=== PATIENT | female | born 1980 | race Caucasian/White ===

== ENCOUNTER 2018-08-21 10:29 | Observation (INO) | payer OTHER ==
[2018-08-21] MEDS ORDERED: ACETAMINOPHEN 325 MG TABLET PO STA (13:27)
--- NOTE | 2018-08-21 13:30 | ED Physician Documentation ---
History of Present Illness - Stated complaint Stated Complaint: CHEST PX/TREVIZO - Chief complaint Chief Complaint: Neuro - History obtained from History obtained from: Patient - History of Present Illness Timing: How many days ago (3) - Additonal information Additional information: The patient is a 38-year-old female who presents with headache and myalgias of 6 days duration. She has also had a cyst on her anterior chest for more than a year but it has increased in size over the past 2 days, and has become exceptionally painful to touch. She is not certain of fever, but felt warm last night. She denies cough, shortness of breath, abdominal pain, nausea or vomiting. She denies sore throat. Past medical history is significant for Ally-en-Y surgery. She reports long history of iron deficiency anemia, requiring blood transfusions in the past. She states her hgb usually runs between 7 and 10. Review of Systems Constitutional: reports: Fever, Myalgias Eyes: denies: Decreased vision, Irritation Ears: denies: Ear pain, Tinnitus/ringing Nose: denies: Congestion Throat: denies: Sore throat Cardiac: reports: Chest pain / pressure (anterior chest) Respiratory: denies: Dyspnea, Cough GI: denies: Abdominal Pain, Nausea, Vomiting : denies: Dysuria Skin: denies: Rash Musculoskeletal: reports: Neck pain. denies: Back pain Neurologic: reports: Headache. denies: Focal weakness, Numbness, Confused PD PAST MEDICAL HISTORY - Past Medical History Endocrine/Autoimmune: None Other Past Medical History: Chronic anemia - Past Surgical History General: Other (S/P Ruen-Y Surgery) - Present Medications Home Medications: Ambulatory Orders Medication Instructions Recorded Confirmed No Known Home Medications 08/21/18 08/21/18 - Allergies Allergies/Adverse Reactions: Allergies Allergy/AdvReac Type Severity Reaction Status Date / Time No Known Drug Allergies Allergy Verified 08/21/18 10:35 - Social History Does the pt smoke?: No PD ED PE NORMAL - Vitals Vital signs reviewed: Yes (normal) - General General: Alert and oriented X 3, Well developed/nourished - HEENT HEENT: Atraumatic, PERRL, EOMI, Ears normal, Pharynx benign, Other (Tenderness to palpation over the right temporal region.) - Neck Neck: Supple, no meningeal sign, No adenopathy, No JVD - Cardiac Cardiac: RRR, No murmur - Respiratory Respiratory: No respiratory distress, Clear bilaterally - Abdomen Abdomen: Soft, Non tender - Back Back: No spinal TTP - Derm Derm: No rash, Other (There is a sebaceous cyst noted on the anterior chest over the sternal bone. There is associated tenderness to palpation.) - Extremities Extremities: No edema, No calf tenderness / cord - Neuro Neuro: Alert and oriented X 3, No motor deficit, Normal speech Results - Vitals Vitals: Vital Signs - 24 hr 08/21/18 10:33 Temperature 36.9 C Heart Rate 92 Respiratory 18 Rate Blood Pressure 133/80 H O2 Saturation 99 Oxygen O2 Source Room air - Labs Labs: Laboratory Tests 08/21/18 08/21/18 08/21/18 10:37 14:08 14:08 WBC 3.5 L RBC 3.46 L Hgb 5.2 L* Hct 18.6 L* MCV 53.8 L MCH 15.1 L MCHC 28.0 L RDW 23.0 H Plt Count 501 H MPV 8.1 Neut # (Auto) 1.2 L Lymph # (Auto) 2.0 [place] # (Auto) 0.2 Eos # (Auto) 0.0 Baso # (Auto) 0.0 Absolute Nucleated RBC 0.01 Nucleated RBC % 0.3 Platelet Estimate INCREASED (>450,000) Platelet Morphology 1+ LARGE PLATELETS RBC Morph Micro Appear 1+ MICROCYTOSIS ESR Iron TIBC Transferrin Influenza A (Rapid) Negative Influenza B (Rapid) Negative Blood Type Blood Type Recheck O POSITIVE Antibody Screen Crossmatch IS Only 08/21/18 08/21/18 08/21/18 14:09 15:14 15:27 WBC RBC Hgb Hct MCV MCH MCHC RDW Plt Count MPV Neut # (Auto) Lymph # (Auto) [place] # (Auto) Eos # (Auto) Baso # (Auto) Absolute Nucleated RBC Nucleated RBC % Platelet Estimate Platelet Morphology RBC Morph Micro Appear ESR 17 Iron < 6 L TIBC 570 H Transferrin 407 H Influenza A (Rapid) Influenza B (Rapid) Blood Type O POSITIVE Blood Type Recheck Antibody Screen NEGATIVE Crossmatch IS Only See Detail 08/21/18 15:27 WBC RBC Hgb Hct MCV MCH MCHC RDW Plt Count MPV Neut # (Auto) Lymph # (Auto) [place] # (Auto) Eos # (Auto) Baso # (Auto) Absolute Nucleated RBC Nucleated RBC % Platelet Estimate Platelet Morphology RBC Morph Micro Appear ESR Iron TIBC Transferrin Influenza A (Rapid) Influenza B (Rapid) Blood Type Cancelled Blood Type Recheck Antibody Screen Cancelled Crossmatch IS Only See Detail PD MEDICAL DECISION MAKING - ED course Complexity details: reviewed results, re-evaluated patient, considered differential, d/w patient, d/w family, d/w technical services consultant ED course: The patient's presentation is significant for profound anemia with a hemoglobin of 5.2 and hematocrit 18.6. Her MCV is low at 53.8. There is no history of recent blood loss or change in her stool color. Her last menstrual period was manager council than usual. The underlying cause for her headache is uncertain. Temporal arteritis was considered, given tenderness to palpation over the right temporal region. However with a normal sedimentation rate temporal arteritis is unlikely. Her presentation does not suggest meningitis, intracranial hemorrhage, or pseudotumor cerebri. Treatment in the emergency department included administration of acetaminophen 650 mg orally and oxycodone 5 mg orally. Blood transfusion was ordered. I discussed her condition with Dr. Nugent who accepts her for further evaluation and treatment. Departure - Departure Disposition: ED Place in Observation Clinical Impression: Anemia Qualifiers: Anemia type: unspecified type Qualified Code(s): D64.9 - Anemia, unspecified Headache Qualifiers: Headache type: unspecified Headache chronicity pattern: episodic headache Intractability: not intractable Qualified Code(s): R51 - Headache Condition: Stable Discharge Date/Time: 08/21/18 16:38
[2018-08-21] MEDS ORDERED: oxyCODONE 5 MG TABLET PO STA (14:26)
[2018-08-21 14:40] LABS: EOSINOPHILS % (AUTO) 1.2 %; LYMPHOCYTES % (AUTO) 57.3 %; MEAN CORPUSCULAR HEMOGLOBIN 15.1 pg (27.0-31.0); MEAN CORPUSCULAR VOLUME 53.8 fL (81.0-99.0); MEAN PLATELET VOLUME 8.1 fL (7.9-10.8); MONOCYTES # (AUTO) 0.2 10^3/uL (0.0-1.0); MONOCYTES % (AUTO) 5.2 %; NEUTROPHILS # (AUTO) 1.2 10^3/uL (1.5-6.6); NEUTROPHILS % (AUTO) 35.3 %; PLT - PLATELET COUNT 501 10^3/uL (130-450); RED BLOOD COUNT 3.46 10^6/uL (4.20-5.40); WHITE BLOOD COUNT 3.5 x10^3/uL (4.8-10.8)
[2018-08-21 14:43] LABS: HGB - HEMOGLOBIN 5.2 g/dL (12.0-16.0)
[2018-08-21 15:28] LABS: PLATELET ESTIMATE, MANUAL INCREASED (>450,000) (NORMAL); PLATELET MORPHOLOGY 1+ LARGE PLATELETS (NORMAL)
[2018-08-21 15:50] LABS: IRON < 6 ug/dL (28-170); TOTAL IRON BINDING CAPACITY 570 ug/dL (250-450); TRANSFERRIN 407 mg/dL (192-382)
[2018-08-21] MEDS ORDERED: ONDANSETRON 4 MG/2 ML VIAL IVP PRN (15:51)
--- NOTE | 2018-08-21 16:55 | HISTORY & PHYSICAL EXAMINATION ---
Chief Complaint - Chief Complaint Chief Complaint: flu-like symptoms History of Present Illness - Admitted From Admitted From:: [facility] - History Obtained From Records Reviewed: Yes History obtained from: patient, , EMR - History of Present Illness HPI Comment/Other: Mrs. Bains is 38 year old female a PMH significant for hx iron deficiency anemia, chronic anemia (per patient), menometorrhagia, and gastric bypass in 2011. She presents to the [facility] today with complaints of flu-like symptoms and headache for the last several days. She has been experiencing exertional dyspnea, palpitations and dizziness. She denies cough, shortness of breath, abdominal pain, n/v or sore throat. Workup in the ER revealed a Hgb of 5.2. The patient states that she normally ranges in the 7-10 range. She denies hematochezia, melena, or BRBPR. She last received a blood transfusion after her last delivery in 2018. She reports being worked up in the past, but reports that nothing was found. Iron studies reveal an iron level of <6 and TIBC of 570. She denies NSAID use. She is being admitted to observation for blood transfusion and IV iron infusion. 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 - Substance History Use: Uses substance without health or social issues: NONE - POLST Patient has POLST: No Meds/Allgy - Home Medications Home Medications: Ambulatory Orders Medication Instructions Recorded Confirmed No Known Home Medications 08/21/18 08/21/18 - Allergies Allergies/Adverse Reactions: Allergies Allergy/AdvReac Type Severity Reaction Status Date / Time No Known Drug Allergies Allergy Verified 08/21/18 10:35 Review of Systems - Constitutional Constitutional: reports: Fatigue, Malaise. denies: Fever, Chills - Cardiovascular Cariovascular: reports: Palpitations, Exertional dyspnea. denies: Irregular heart rate, Chest pain, Lightheadedness, Syncope - Respiratory Respiratory: denies: Cough, Hemoptysis - Gastrointestinal Gastrointestinal: denies: Rectal bleeding, Black stools, Bloody stools, Ahmet blood emesis, Coffee grounds emesis - Genitourinary Genitourinary: reports: Other (heavy menstrual periods with clots) - Musculoskeletal Musculoskeletal: reports: Muscle aches - Neurological Neurological: reports: Headache, Dizziness. denies: Seizures - Hematologic/Lymphatic Hematologic/Lymphatic: reports: Anemia - All Other Systems All Other Systems: reports: Reviewed and negative Prior Level of Functionality: Patient is independent Exam - Vital Signs Reviewed Vital Signs: Yes Vital Signs: Vital Signs x48h Temp Pulse Pulse Resp BP BP Pulse Ox 08/21/18 16:41 36.8 C 67 18 105/67 100 08/21/18 16:23 37 C 73 16 111/69 100 08/21/18 10:33 36.9 C 92 18 133/80 H 99 - Physical Exam General Appearance: positive: No acute distress, Alert Eyes Bilateral: positive: Normal inspection, PERRL, Other (pale conjunctiva) ENT: positive: ENT inspection nml, No signs of dehydration Neck: positive: Nml inspection, Trachea midline Respiratory: positive: Chest non-tender, No respiratory distress, Breath sounds nml Cardiovascular: positive: Regular rate & rhythm, No murmur, No gallop. negative: Systolic murmur Peripheral Pulses: positive: 2+ Abdomen: positive: Non-tender, No organomegaly, Nml bowel sounds, No distention Back: positive: Nml inspection Skin: positive: Warm, Dry, Pallor Extremities: positive: Non-tender, Full ROM, Nml appearance Neurologic/Psychiatric: positive: Oriented x3, CN's nml (2-12), Motor nml, Sensation nml, Mood/affect nml Conclusion/Plan - Problem List (1) Acute anemia Conclusion/Plan: Patient presents with symptomatic anemia with Hgb of 5.8. Per report, patient's normal Hgb ranges from 7-10 g/dL. No previous records are available for review. She was T&C in the ER. She will be admitted for observation. Telemetry. She will receive 3 units of PRBC. Follow-up CBC in the morning. (2) Iron deficiency anemia Conclusion/Plan: Severe. MCV 54. Iron level <6 with TIBC 570. Will give her an IV infusion. She will need to discharge on oral iron supplementation. Recommend close outpatient monitoring, if further IV iron infusions need to be given. Qualifiers: Iron deficiency anemia type: unspecified iron deficiency Qualified Code(s): D50.9 - Iron deficiency anemia, unspecified (3) Headache Conclusion/Plan: Patient presented with headache. Received tylenol in the ER. Will continue tylenol as needed for headache. Qualifiers: Headache type: unspecified Headache chronicity pattern: episodic headache Intractability: not intractable Qualified Code(s): R51 - Headache - Lab Results Fish Bones: 08/21/18 14:08 Core Measures - Anticipated LOS I expect patient to be DC'd or transferred within 96 hours.: Yes - DVT/VTE - Prophylaxis VTE/DVT Device ordered at admit?: Yes
[2018-08-21] MEDS: ACETAMINOPHEN 325 MG TABLET PO PRN ×2 (17:54→23:57)
[2018-08-21] MEDS ORDERED: IRON SUCROSE 200 MG in SODIUM CHLORIDE 0.9% 100ML 100 ML IV ONE (18:00)
[2018-08-21] MEDS: SODIUM CHLORIDE FLUSH 0.9% 10 ML SYRINGE IVP PRN (18:02)
[2018-08-21] MEDS: SODIUM CHLORIDE FLUSH 0.9% 10 ML SYRINGE IVP SCH ×2 (18:02→23:59)
[2018-08-21] MEDS: oxyCODONE 5 MG TABLET PO PRN ×2 (19:30→23:57)
[2018-08-22] MEDS ORDERED: SODIUM CHLORIDE 0.9% 500 ML IV ONE (00:31)
[2018-08-22] MEDS: SODIUM CHLORIDE FLUSH 0.9% 10 ML SYRINGE IVP PRN (04:38)
[2018-08-22 07:15] LABS: BASOPHILS % (AUTO) 0.8 %; EOSINOPHILS # (AUTO) 0.1 10^3/uL (0.0-0.7); EOSINOPHILS % (AUTO) 2.5 %; HGB - HEMOGLOBIN 9.2 g/dL (12.0-16.0); LYMPHOCYTES # (AUTO) 1.7 10^3/uL (1.5-3.5); LYMPHOCYTES % (AUTO) 44.4 %; MEAN CORPUSCULAR HEMOGLOBIN 19.9 pg (27.0-31.0); MEAN CORPUSCULAR HGB CONC 30.4 g/dL (32.0-36.0); MEAN CORPUSCULAR VOLUME 65.4 fL (81.0-99.0); MEAN PLATELET VOLUME 8.1 fL (7.9-10.8); MONOCYTES # (AUTO) 0.2 10^3/uL (0.0-1.0); MONOCYTES % (AUTO) 5.6 %; NEUTROPHILS # (AUTO) 1.8 10^3/uL (1.5-6.6); NEUTROPHILS % (AUTO) 46.7 %; PLT - PLATELET COUNT 380 10^3/uL (130-450); RED BLOOD COUNT 4.63 10^6/uL (4.20-5.40); RED CELL DISTRIBUTION WIDTH 34.4 % (12.0-15.0); WHITE BLOOD COUNT 3.7 x10^3/uL (4.8-10.8)
[2018-08-22 08:11] LABS: PLATELET ESTIMATE, MANUAL NORMAL (130-450,000) (NORMAL); PLATELET MORPHOLOGY NORMAL APPEARANCE (NORMAL)
[2018-08-22 08:28] VITALS: BP 119/80
[2018-08-22] MEDS: SODIUM CHLORIDE FLUSH 0.9% 10 ML SYRINGE IVP SCH (08:44)
[2018-08-22] MEDS ORDERED: POLYETHYLENE GLYCOL 3350 17 GM PACKET PO SCH (09:00)
--- NOTE | 2018-08-22 10:33 | Discharge Plan ---
Discharge Plan Disposition: Home, Self Care Condition: Poor Prescriptions: Ferrous Sulfate 325 mg PO BID #30 tablet Diet: Regular Activity Restrictions: Activity as Tolerated Shower Restrictions: No (fall precaution) Instruction Topics: Anemia Iron Deficiency Ch Additional Instructions or Follow Up instructions: you may followup your PCP in one to two weeks. You were found to have iron deficiency anemia. You had blood transfusion and IV of iron. You are prescribed iron pill as well. Should your symptoms return or worsen, you may present ER or call 911 or your PCP for help. No Smoking: If you smoke, Please STOP! Call for help.
--- NOTE | 2018-08-22 10:38 | DISCHARGE SUMMARY ---
Discharge Summary Discharge Date: 08/22/18 Discharging Provider: JASMINE Condition at Discharge: Stable Discharge Disposition: 01 Home, Self Care Discharge Facility Name: home - DIAGNOSES Admission Diagnoses: (1) Acute anemia (2) Iron deficiency anemia (3) Headache Discharge Diagnoses with Status of Each Condition: 1) Acute anemia pt had 5.2 HGB at admission, then pt had three unit of blood transfusion. pt had 9.2 HGB at d/c. pt had hx of chronic anemia plus pt had hx of gastric bypass. (2) Iron deficiency anemia iron is 6 at test. pt had IV of iron. pt is prescribed PO iron. (3) Headache resolved - HPI History of Present Illness: refer from Ms. Johnson's HPI on 08/21/18 as the following: Mrs. Bains is 38 year old female a PMH significant for hx iron deficiency anemia, chronic anemia (per patient), menometorrhagia, and gastric bypass in 2011. She presents to the [facility] ER today with complaints of flu-like symptoms and headache for the last several days. She has been experiencing exe rtional dyspnea, palpitations and dizziness. She denies cough, shortness of breath, abdominal pain, n/v or sore throat. Workup in the ER revealed a Hgb of 5.2. The patient states that she normally ra nges in the 7-10 range. She denies hematochezia, melena, or BRBPR. She last received a blood transfusion after her last delivery in 2018. She reports being worked up in the past, but reports that nothing was found. Iron studies reveal an iron level of <6 and TIBC of 570. She denies NSAID use. She is being admitted to observation for blood transfusion and IV iron infusion. - HOSPITAL COURSE Hospital Course: pt was admitted for exertional dyspnea, palpitations and dizziness. pt was found to have HGB 5.2. pt had three unit of blood transfusion. pt had 9.2 HGB at d/c. pt had hx of chronic anemia plus pt had hx of gastric bypass. Pt also was found to severe iron deficiency. pt had IV of iron, and is prescribed PO iron for d/c. After transfusion of blood, pt feel much better, denies any more of dyspnea, palpitations, headache and dizziness. - ALLERGIES Allergies/Adverse Reactions: Allergies Allergy/AdvReac Type Severity Reaction Status Date / Time No Known Drug Allergies Allergy Verified 08/21/18 10:35 - MEDICATIONS Home Medications: Ambulatory Orders Medication Instructions Recorded Confirmed Ferrous Sulfate 325 mg PO BID #30 tablet 08/22/18 - PHYSICAL EXAM AT DISCHARGE General Appearance: positive: No acute distress, Alert. negative: Lethargic Eyes Bilateral: positive: Normal inspection, PERRL, No lid inflammation, Conjunctivae nml ENT: positive: ENT inspection nml, Pharynx nml, No signs of dehydration. negative: Purulent nasal drainage, Pharyngeal erythema, Oral lesions Neck: positive: Nml inspection, Thyroid nml, No JVD, Trachea midline. negative: Thyromegaly, Lymphadenopathy (R), Lymphadenopathy (L), Stiff neck, Swelling/bruising, Tracheal deviation Respiratory: positive: Chest non-tender, No respiratory distress, Breath sounds nml. negative: Wheezes, Rales, Rhonchi Cardiovascular: positive: Regular rate & rhythm, No murmur, No gallop. negative: Irregularly irregular, Extrasystoles, Tachycardia, Bradycardia, JVD present, Systolic murmur, Diastolic murmur Peripheral Pulses: positive: 2+ Abdomen: positive: Non-tender, No organomegaly, Nml bowel sounds, No distention. negative: Tenderness, Guarding, Rebound Back: positive: Nml inspection. negative: CVA tenderness (R), CVA tenderness (L) Skin: positive: Color nml, No rash, Warm, Dry. negative: Cyanosis, Diaphoresis, Pallor Extremities: positive: Non-tender, Full ROM, Nml appearance. negative: Calf tenderness, Joint swelling, Ulises's sign/cords Neurologic/Psychiatric: positive: Oriented x3, Sensation nml, Mood/affect nml. negative: Weakness, Sensory loss, Facial droop, Slurred/abnml speech, Depressed mood/affect - LABS Result Diagrams: 08/22/18 07:09 - FOLLOW UP Follow Up: you may followup your PCP in one to two weeks. You were found to have iron deficiency anemia. You had blood transfusion and IV of iron. You are prescribed iron pill as well. Should your symptoms return or worsen, you may present ER or call 911 or your PCP for help. - TIME SPENT Time Spent in Discharge (Minutes): 50
[2018-08-22] MEDS ORDERED: FERROUS SULFATE 325 MG TABLET PO SCH (17:00)
== END 2018-08-22 11:10 | disposition home or self-care (01) ==
LOC: ED 10:29 → OBS 15:51
PROVIDERS: ADMIT Nurse Practitioner; ATTEND Nurse Practitioner Gerontology
DX: D50.9 Iron deficiency anemia, unspecified (principal); R51 Headache; Z98.84 Bariatric surgery status; L72.3 Sebaceous cyst
CPT/HCPCS: 36415; 36430; 83540; 84466; 85025; 85651; 86850; 86920; 87275; 87276; 96365; 99283; A9270; G0378; J1756; P9016; 86900; 86901; 99284

== ENCOUNTER 2018-11-13 11:28 | Emergency (ER) | payer OTHER ==
[2018-11-13 11:50] VITALS: BP 137/90
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
== END 2018-11-13 12:35 | disposition home or self-care (01) ==
LOC: ED 11:28
DX: S16.1XXA Strain of muscle, fascia and tendon at neck level, initial encounter (principal); M54.6 Pain in thoracic spine; R51 Headache; V43.52XA Car driver injured in collision with other type car in traffic accident, initial encounter; Y92.410 Unspecified street and highway as the place of occurrence of the external cause
CPT/HCPCS: 99283